=== PATIENT | male | born 2000 | race Hispanic/Latino ===

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

== ENCOUNTER 2019-07-25 03:22 | Emergency (ER) | payer OTHER, SELFPAY | END 2019-07-25 03:57 | disposition home or self-care (01) | LOC: ERS 03:22 | DX: F10.129 Alcohol abuse with intoxication, unspecified (principal) | CPT/HCPCS: 99284 ==

== ENCOUNTER 2021-03-09 10:42 | Emergency (ER) | payer SELFPAY ==
[2021-03-09] MEDS ORDERED: Boostrix 0.5 ML (Tdap) VIAL ONE (10:54)
[2021-03-09] MEDS ORDERED: Xylocaine 1% w/ Epi 1:100K 10 ML VIAL ONE (10:54)
== END 2021-03-09 11:36 | disposition home or self-care (01) ==
LOC: ERS 10:42
DX: S81.012A Laceration without foreign body, left knee, initial encounter (principal); W27.5XXA Contact with paper-cutter, initial encounter
CPT/HCPCS: 90471; 90715; 99283